=== PATIENT | female | born 1945 | race Caucasian/White ===

== ENCOUNTER 2025-05-17 03:12 | Inpatient (IN) | payer MEDICARE, BC ==
[~2025-05-17] VITALS: Ht 162.6 cm; Wt 117.9 kg
[2025-05-17] MEDS ORDERED: ACETAMINOPHEN ES 500 MG TABLET ONE (03:37)
[2025-05-17] MEDS: ACETAMINOPHEN 325 MG TABLET PO ONE (03:40)
[2025-05-17] MEDS ORDERED: CEFTRIAXONE 1GM BAG (ER ONLY) 50 ML IV ONE (04:02)
[2025-05-17 04:16] LABS: PLATELET COUNT (AUTO) 166 K/uL (150-450); RED BLOOD CELL COUNT(AUTO) 5.16 MIL/uL (4.0-5.2); RED CELL DISTRIBUTION WIDTH 15.1 % (11.5-15.0); WHITE BLOOD COUNT (AUTO) 11.9 K/uL (4.3-11.0)
[2025-05-17] MEDS: CEFTRIAXONE 1GM BAG (ER ONLY) 1 GM/50 ML PIGGYBACK IV ONE (04:17)
[2025-05-17] MEDS ORDERED: LEVO50TA8 PO (04:18)
[2025-05-17] MEDS ORDERED: ATOR40TA PO (04:18)
[2025-05-17] MEDS ORDERED: AMLO-212 PO (04:18)
[2025-05-17] MEDS ORDERED: FURO40TA5 PO (04:18)
[2025-05-17] MEDS ORDERED: EZET10TA15 PO (04:18)
[2025-05-17] MEDS ORDERED: POTA-88 PO (04:18)
[2025-05-17 04:26] LABS: CALCIUM, SERUM 9.0 mg/dL (8.5-10.1); CREATININE 1.1 mg/dL (0.6-1.3); SODIUM SERUM 138 mmol/L (136-145); UREA NITROGEN, BLOOD 17 mg/dL (7-18)
[2025-05-17 04:28] LABS: ABG BASE EXCESS 0.2 mmol/L (-2.0-3.0); ABG OXYGEN SATURATION 99.4 % (94.0-98.0); ABG PCO2 37.5 mmHg (32.0-45.0); ABG PH 7.429 (7.350-7.450); ABG PO2 377.0 mmHg (83.0-108.0); ABG TOTAL HEMOGLOBIN 14.1 G/dL (12.0-16.0); FRACTIONATED INSPIRED OXYGEN 100.0 %; SET RATE, BG 24.0; SITE, ABG LEFT RADIAL
[2025-05-17] MEDS ORDERED: AZITHROMYCIN 500 MG VIAL ONE (04:28)
[2025-05-17 04:31] LABS: ASPARTATE AMINOTRANSFERASE 18 U/L (15-37)
[2025-05-17 04:32] LABS: TOTAL PROTEIN, SERUM 7.2 g/dL (6.4-8.2)
[2025-05-17] MEDS: AZITHROMYCIN 500 MG in IV D5W 250 ML IV ONE (04:45)
[2025-05-17 04:49] LABS: NT-PRO BNP 836 pg/mL (0-125)
[2025-05-17 04:58] LABS: LACTIC ACID 2.6 mmol/L (0.4-2.0)
[2025-05-17 05:08] LABS: INR 1.26 (0.91-1.10)
[2025-05-17] MEDS ORDERED: IV NS 0.9% 500 ML BAG IV ONE (05:30)
[2025-05-17 06:28] LABS: APPEARANCE,URINE CLEAR (CLEAR); BLOOD, URINE 1+ Ery/uL (NEGATIVE); LEUKOCYTE ESTERASE ,URINE TRACE (NEGATIVE); NITRITE, URINE POSITIVE (NEGATIVE); UGLUCOSE NEGATIVE (NEGATIVE)
[2025-05-17] MEDS ORDERED: ENOXAPARIN SODIUM 40 MG/0.4 ML DISP.SYRIN SQ SCH (06:30)
[2025-05-17] MEDS ORDERED: MAG HYDROX/AL HYDROX/SIMETH 30 ML UDC PO PRN (06:30)
[2025-05-17] MEDS ORDERED: ONDANSETRON HCL/PF 4 MG/2 ML VIAL IVP PRN (06:30)
[2025-05-17] MEDS ORDERED: MAGNESIUM HYDROXIDE 30 ML UDC PO PRN (06:30)
[2025-05-17] MEDS ORDERED: ACETAMINOPHEN 325 MG TABLET PO PRN (06:30)
[2025-05-17 06:46] LABS: ADD URINE CULTURE YES
[2025-05-17 07:30] VITALS: BP 102/61; TEMP 98.2; O2SAT 95
[2025-05-17 08:00] VITALS: BP 102/61; TEMP 98.2; O2SAT 95
[2025-05-17] MEDS ORDERED: FUROSEMIDE 40 MG/4 ML VIAL IV SCH (09:00)
[2025-05-17] MEDS: METOPROLOL TARTRATE 25 MG TABLET PO SCH (11:15)
[2025-05-17] MEDS: ATORVASTATIN 40 MG TABLET PO SCH (11:16)
[2025-05-17] MEDS: POTASSIUM CHLORIDE 20 MEQ TAB.PRT.SR PO SCH (11:16)
[2025-05-17] MEDS: LEVOTHYROXINE SODIUM 50 MCG TABLET PO SCH (11:16)
[2025-05-17] MEDS: FUROSEMIDE 40 MG/4 ML VIAL IV SCH (11:17)
[2025-05-17] MEDS: PANTOPRAZOLE 40 MG VIAL IV SCH (11:17)
[2025-05-17] MEDS: EZETIMIBE 10 MG TABLET PO SCH (11:17)
[2025-05-17 12:00] VITALS: BP 116/63; TEMP 97.7; O2SAT 99
[2025-05-17 16:00] VITALS: BP 118/72; TEMP 97.7; O2SAT 98
[2025-05-17 20:00] VITALS: BP 112/60; TEMP 97.7; O2SAT 98
[2025-05-17] MEDS: CEFTRIAXONE 2 G in IV D5W 100 ML IV SCH (20:46)
[2025-05-18] MEDS ORDERED: AZITHROMYCIN 500 MG in IV D5W 250 ML IV SCH (04:00)
[2025-05-18] MEDS ORDERED: CEFTRIAXONE 1 G in IV D5W 50 ML IV SCH (04:00)
== END 2025-05-17 22:20 | disposition short-term general hospital (02) | DRG 871 ==
LOC: ER 03:16 → ICUOV 07:47 → TELE-TD 08:12
PROVIDERS: ADMIT Student in an Organized Health Care Education/Training Program; ATTEND Student in an Organized Health Care Education/Training Program
PROC: 5A09357 Assistance with Respiratory Ventilation, Less than 24 Consecutive Hours, Continuous Positive Airway Pressure (ICD-10-PCS; principal; 2025-05-17)
DX: A41.9 Sepsis, unspecified organism (principal); I21.A1 Myocardial infarction type 2; J96.01 Acute respiratory failure with hypoxia; E87.20 Acidosis, unspecified; E44.0 Moderate protein-calorie malnutrition; N39.0 Urinary tract infection, site not specified; B96.89 Other specified bacterial agents as the cause of diseases classified elsewhere; I50.9 Heart failure, unspecified; E03.9 Hypothyroidism, unspecified; E11.9 Type 2 diabetes mellitus without complications; E66.01 Morbid (severe) obesity due to excess calories; I11.0 Hypertensive heart disease with heart failure; Z68.41 Body mass index [BMI] 40.0-44.9, adult; I16.0 Hypertensive urgency; E78.5 Hyperlipidemia, unspecified; E88.09 Other disorders of plasma-protein metabolism, not elsewhere classified; G47.33 Obstructive sleep apnea (adult) (pediatric); M19.90 Unspecified osteoarthritis, unspecified site; Z96.651 Presence of right artificial knee joint; Z20.822 Contact with and (suspected) exposure to COVID-19
CPT/HCPCS: 36415; 36600; 71045-TC; 80048-TC; 80076-TC; 81001; 83605-TC; 83880; 84484-TC; 85025-TC; 85730-TC; 87040-TC; 87081-TC; 87086-TC; 93307-TC; A4223; G0378; J0456; J0696; J1938; J2470; J2919; J7040; J7060